=== PATIENT | male | born 1965 | race Two or more races ===

== ENCOUNTER 2023-03-22 07:35 | Emergency (ER) | payer OTHER ==
[~2023-03-22] VITALS: Ht 167.6 cm; Wt 63.5 kg
== END 2023-03-22 14:36 | disposition designated cancer center or children's hospital (05) ==
LOC: ER 07:35
DX: I16.0 Hypertensive urgency (principal); N17.8 Other acute kidney failure; I21.29 ST elevation (STEMI) myocardial infarction involving other sites; F17.210 Nicotine dependence, cigarettes, uncomplicated; I50.1 Left ventricular failure, unspecified; Z20.822 Contact with and (suspected) exposure to COVID-19; I10 Essential (primary) hypertension